=== PATIENT | female | born 1995 | race Caucasian/White ===

== ENCOUNTER 2018-01-31 16:55 | Emergency (ER) | payer BC, MEDICAID ==
[2018-01-31] MEDS ORDERED: KETOROLAC 30 MG/ML VIAL IVP ONE (18:44)
[2018-01-31] MEDS ORDERED: METOCLOPRAMIDE HCL 10 MG/2 ML VIAL IVP ONE (18:44)
[2018-01-31] MEDS ORDERED: DIPHENHYDRAMINE HCL 50 MG/ML VIAL IVP ONE (18:44)
[2018-01-31] MEDS ORDERED: DEXAMETHASONE SOD PHOSPHATE 10MG/ML VIAL IVP ONE (18:44)
[2018-01-31] MEDS ORDERED: 0.9 % SODIUM CHLORIDE 1000ML 1,000 ML IV SCH (18:45)
--- NOTE | 2018-01-31 18:48 | Emergency Department Record ---
History of Present Illness - General Chief Complaint: Headache Migraine Stated Complaint: MIGRAINE Time Seen by Provider: 01/31/18 18:44 Source: Patient Mode of Arrival: Ambulatory Limitations: No limitations - History of Present Illness Initial Comments: 22 yo female presents to ED for evaluation of headache symptoms that began 5 days ago. Patient reports a history of intermittent "migraine-type" headaches, but has not had a headache this severe in several years. Patient denies fevers , chills, or recent illness, denies neck stiffness symptoms. Patient does report intermittent blurred vision and nausea/vomiting which are common with previous headache episodes. Patient does not take anticoagulation medications, and denies health problems other than her headaches. MD Complaint: Headache Onset/Timin -: Days(s) Onset Description: Gradual Location: Diffuse Severity: Moderate Severity scale (1-10): >10 Quality: Aching, Throbbing Consistency: Constant Associated Symptoms: Nausea, Vision loss, Vomiting Treatments Prior to Arrival: Acetaminophen, Migraine medication - Related Data Home Medications Medication Instructions Recorded Confirmed Last Taken 21/Iron Fu/Folic Acid 1 each PO DAILY 01/31/18 01/31/18 1 Day Ago [ Complete Caplet] ~01/30/18 Allergies Allergy/AdvReac Type Severity Reaction Status Date / Time morphine Allergy RASH Verified 01/31/18 17:39 Travel Screening - Travel/Exposure Within Last 30 Days Have you traveled within the last 30 days?: No - Travel/Exposure Within Last Year Have you traveled outside the [place] in the last year?: No - Additonal Travel Details Have you been exposed to anyone with a communicable illness?: No - Travel Symptoms Symptom Screening: None Review of Systems Constitutional: Denies: Chills, Fever, Malaise, Night sweats Eyes: Reports: Photophobia. Denies: Eye discharge, Eye pain ENT: Denies: Congestion, Dental pain Respiratory: Denies: Cough, Dyspnea Cardiovascular: Denies: Chest pain, Dyspnea on exertion Endocrine: Denies: Fatigue, Heat or cold intolerance Gastrointestinal: Reports: Nausea, Vomiting. Denies: Abdominal pain Genitourinary: Denies: Incontinence, Retention Musculoskeletal: Denies: Arthralgia, Back pain, Neck pain Skin: Denies: Bruising, Change in color Neurological: Reports: Headache. Denies: Abnormal gait, Confusion, Tingling, Tremors Psychiatric: Denies: Anxiety Hematological/Lymphatic: Denies: Anemia, Blood Clots Past Medical History - SOCIAL HISTORY Smoking Status: Former smoker Alcohol Use: None Drug Use: None - RESPIRATORY Hx Asthma: Yes - CARDIOVASCULAR Hx Cardio Disorders: No - NEURO Hx Headaches: Yes - GI Hx GI Disorders: No - Hx Genitourinary Disorders: No - ENDOCRINE Hx Diabetes: No Hx Thyroid Disease: No - MUSCULOSKELETAL Hx Musculoskeletal Disorders: No - PSYCH Hx Psych Problems: No - HEMATOLOGY/ONCOLOGY Hx Hematology/Oncology Disorders: No Family Medical History Any Significant Family History?: Yes Physical Exam - General General Appearance: Alert, Oriented x3, Cooperative, Moderate distress Limitations: No limitations - Head Head exam: Atraumatic, Normocephalic, Normal inspection Head exam detail: negative: Abrasion, Contusion, William's sign, General tenderness, Hematoma, Laceration - Eye Eye exam: Normal appearance, PERRL. negative: Conjunctival injection, Periorbital swelling, Periorbital tenderness, Scleral icterus - ENT Ear exam: negative: Auricular hematoma, Auricular trauma Nasal Exam: negative: Active bleeding, Discharge, Dried blood, Sinus tenderness Mouth exam: negative: Drooling, Laceration, Tongue elevation - Neck Neck exam: Normal inspection. negative: Meningismus, Tenderness - Respiratory Respiratory exam: Normal lung sounds bilaterally. negative: Respiratory distress, Rhonchi, Stridor, Wheezes - Cardiovascular Cardiovascular Exam: Regular rate, Normal rhythm, Normal heart sounds - GI/Abdominal GI/Abdominal exam: Soft. negative: Rebound, Rigid, Tenderness - Rectal Rectal exam: Deferred - exam: Deferred - Extremities Extremities exam: Normal inspection. negative: Tenderness - Neurological Neurological exam: Alert, CN II-XII intact, Oriented X3 - Psychiatric Psychiatric exam: Normal affect, Normal mood - Skin Skin exam: Normal color. negative: Abrasion Type of lesion: negative: abrasion Course Vital Signs 01/31/18 17:32 Temperature 98.5 F Pulse Rate 88 Respiratory 20 Rate Blood Pressure 119/94 Pulse Ox 99 - Reevaluation(s) Reevaluation #1: 01/31/18 19:56 Patient was reassessed, reports that her headache symptoms are significantly improved to 3/10 at this time. Reevaluation #2: 01/31/18 20:18 Patient reports that her headache symptoms continue to improve, and appears stable for discharge at this time. Disposition Disposition: Discharge Clinical Impression: Acute headache Qualifiers: Headache type: unspecified Intractability: not intractable Qualified Code(s): R51 - Headache Disposition: Home, Self-Care Condition: (2) Stable Instructions: Acute Headache (ED) Additional Instructions: Return to ED if your symptoms worsen or if you have any concerns. Follow-up with your family doctor in 3-5 days as directed. Forms: Patient Portal Access Time of Disposition: 20:19 Quality - Quality Measures Quality Measures: N/A - Blood Pressure Screening Does Patient Have Any of the Following: No Blood Pressure Classification: Hypertensive Reading Systolic Measurement: 119 Diastolic Measurement: 94 Screening for High Blood Pressure: < First Hypertensive BP, F/U Documented > [ G8950] First Hypertensive Follow-up Interventions: Referral to alternative/primary care provider.
== END 2018-01-31 20:19 | disposition home or self-care (01) ==
LOC: ER 16:55
DX: R51 Headache (principal); R11.2 Nausea with vomiting, unspecified; Z87.891 Personal history of nicotine dependence
CPT/HCPCS: 96361; 96374; 96375; 99284; J1200; J1885; J2765; J7030

== ENCOUNTER 2019-04-19 01:17 | Emergency (ER) | payer BC, MEDICAID ==
[2019-04-19] MEDS ORDERED: KETOROLAC 30 MG/ML VIAL IM ONE (02:08)
[2019-04-19] MEDS ORDERED: ORPHENADRINE CITRATE 60MG/2ML VIAL IM ONE (02:08)
--- NOTE | 2019-04-19 02:08 | Emergency Department Record ---
History of Present Illness - General Chief Complaint: Back Pain/Injury Stated Complaint: BACK PAIN Time Seen by Provider: 04/19/19 01:57 Source: Patient - History of Present Illness Initial Comments: The patient was fine tonight putting down her kids to bed. She walked down the stairs, and with each step she took down the stairs she got increasing back pain in her left lower back and into her left buttock, sacrum and tailbone region. She states that to put weight on her left leg made such great pain that she felt like she couldn't trust it to bear weight. She states the leg was NOT weak, but it hurt too much to weight bear. She didn't have pain when she put weight on her right leg. She continues to be painful so she came here. She had both tubes removed after her last child a few years ago. Her LMP ended yesterday (day 6). MD Complaint: Back pain Onset/Timin -: Hour(s) Similar Symptoms Previously: No Place: Home Radiation: Left leg Severity: Moderate Severity scale (1-10): 5 Quality: Sharp Consistency: Intermittent Improves With: Sitting upright Worsens With: Movement, Walking Context: Unknown Associated Symptoms: Denies other symptoms - Related Data Previous Rx's Medication Instructions Recorded Cyclobenzaprine HCl [Flexeril] 10 mg PO TID #10 tablet 04/19/19 Hydrocodone/Acetaminophen [[place] 1 each PO TID PRN #10 tablet 04/19/19 5-325 Tablet] Allergies Allergy/AdvReac Type Severity Reaction Status Date / Time morphine Allergy RASH Verified 01/31/18 17:39 Travel Screening - Travel/Exposure Within Last 30 Days Have you traveled within the last 30 days?: No - Travel/Exposure Within Last Year Have you traveled outside the [place] in the last year?: No - Additonal Travel Details Have you been exposed to anyone with a communicable illness?: No - Travel Symptoms Symptom Screening: None Review of Systems Reviewed: No additional complaints except as noted below Constitutional: Reports: As per HPI. Denies: Chills, Fever, Malaise, Night sweats, Weakness, Weight change Eyes: Reports: As per HPI. Denies: Eye discharge, Eye pain, Photophobia, Vision change ENT: Reports: As per HPI. Denies: Congestion, Dental pain, Ear pain, Epistaxis, Hearing loss, Throat pain Respiratory: Reports: As per HPI. Denies: Cough, Dyspnea, Hemoptysis, Stridor, Wheezes Cardiovascular: Reports: As per HPI. Denies: Arrhythmia, Chest pain, Dyspnea on exertion, Edema, Murmurs, Orthopnea, Palpitations, Paroxysmal nocturnal dyspnea, Rheumatic Fever, Syncope Endocrine: Reports: As per HPI. Denies: Fatigue, Heat or cold intolerance, Polydipsia, Polyuria Gastrointestinal: Reports: As per HPI. Denies: Abdominal pain, Constipation, Diarrhea, Hematemesis, Hematochezia, Melena, Nausea, Vomiting Genitourinary: Reports: As per HPI. Denies: Abnormal menses, Discharge, Dyspareunia, Dysuria, Frequency, Hematuria, Incontinence, Retention, Urgency Musculoskeletal: Reports: As per HPI. Denies: Arthralgia, Back pain, Gout, Joint swelling, Myalgia, Neck pain Skin: Reports: As per HPI. Denies: Bruising, Change in color, Change in hair/nails, Lesions, Pruritus, Rash Neurological: Reports: As per HPI. Denies: Abnormal gait, Confusion, Headache, Numbness, Paresthesias, Seizure, Tingling, Tremors, Vertigo, Weakness Psychiatric: Reports: As per HPI. Denies: Anxiety, Auditory hallucinations, Depression, Homicidal thoughts, Suicidal thoughts, Visual hallucinations Hematological/Lymphatic: Reports: As per HPI. Denies: Anemia, Blood Clots, Easy bleeding, Easy bruising, Swollen glands Past Medical History - SOCIAL HISTORY Smoking Status: Former smoker Alcohol Use: None Drug Use: None - RESPIRATORY Hx Asthma: Yes - CARDIOVASCULAR Hx Cardio Disorders: No - NEURO Hx Headaches: Yes - GI Hx GI Disorders: No - Hx Genitourinary Disorders: No - ENDOCRINE Hx Diabetes: No Hx Thyroid Disease: No - MUSCULOSKELETAL Hx Musculoskeletal Disorders: No - PSYCH Hx Psych Problems: Yes Hx Anxiety: Yes - HEMATOLOGY/ONCOLOGY Hx Hematology/Oncology Disorders: No Family Medical History Any Significant Family History?: No Physical Exam - General General Appearance: Alert, Oriented x3, Cooperative, Moderate distress - Head Head exam: Normal inspection - Eye Eye exam: Normal appearance, PERRL, EOMI. negative: Conjunctival injection, Nystagmus Pupils: Normal accommodation - ENT ENT exam: Normal exam, Mucous membranes moist, Normal external ear exam, Normal orophraynx, TM's normal bilaterally Ear exam: Normal external inspection. negative: External canal tenderness Nasal Exam: Normal inspection. negative: Discharge, Sinus tenderness Mouth exam: Normal external inspection, Tongue normal Teeth exam: Normal inspection. negative: Dental caries Throat exam: Normal inspection. negative: Tonsillar erythema, Tonsillar exudate - Neck Neck exam: Normal inspection, Full ROM. negative: Lymphadenopathy, Meningismus, Tenderness - Respiratory Respiratory exam: Normal lung sounds bilaterally. negative: Chest wall tenderness, Decreased breath sounds, Respiratory distress - Cardiovascular Cardiovascular Exam: Regular rate, Normal rhythm, Normal heart sounds - GI/Abdominal GI/Abdominal exam: Soft, Normal bowel sounds. negative: Distended, Guarding, Tenderness - Rectal Rectal exam: Deferred - exam: Deferred - Extremities Extremities exam: Normal inspection, Full ROM, Normal capillary refill. negative: Tenderness - Back Back exam: Reports: Normal inspection, Full ROM, Muscle spasm, Vertebral tenderness (lumbar 3-5 tender at spinous processes and tender left flank region with muscle spasm.). Denies: CVA tenderness (R), CVA tenderness (L), Rash noted, Tenderness - Neurological Neurological exam: Alert, CN II-XII intact, Normal gait, Oriented X3, Reflexes normal. negative: Motor sensory deficit - Psychiatric Psychiatric exam: Normal affect, Normal mood - Skin Skin exam: Dry, Intact, Normal color, Warm Course Vital Signs 04/19/19 01:22 Temperature 98.4 F Pulse Rate 95 H Respiratory 20 Rate Blood Pressure 129/98 Pulse Ox 100 - Reevaluation(s) Reevaluation #1: Patient was carefully lowered to flat position with a pillow beneath her knees which improved her comfort level. 04/19/19 02:15 Reevaluation #2: Patient states she is feeling improved when laying flat, but is very painful when she gets up. She states she has never had any bowel or bladder retention/incontinence. 04/19/19 03:55 Medical Decision Making - Management Options MDM Management: Additional Work-up Planned (e.g. ADM/Transfer/OP Study) (Out patient MRI throug PCP with follow up.) - Data Complexity MDM Data: X-Ray Ordered and/or Reviewed (Noncontrast lumbar spine CT: No acute fx; moderate posterior disc bulges at L4-5 and L5-S1 with mild spinal canal stenosis. Incidental finding of 6 nonrib-bearing vertebral bodies. ) Disposition Disposition: Discharge Clinical Impression: Lumbar back pain with radiculopathy affecting left lower extremity Disposition: Home, Self-Care Condition: (1) Good Instructions: Low Back Strain (ED), Lumbar Disc Herniation (ED) Additional Instructions: Flat bed rest. No lifting bending twisting. Flexeril 10 mg three times daily. [place] 5mg every 6-8 hours, prn pain. May cause drowsiness. Take precaustions to prevent constipation. Call PCP [facility] office in a.m. for scheduling of MRI. Find childcare for your children until your condition improves. Prescriptions: Cyclobenzaprine HCl [Flexeril] 10 mg PO TID #10 tablet Hydrocodone/Acetaminophen [[place] 5-325 Tablet] 1 each PO TID PRN #10 tablet PRN Reason: Pain - Mod To Severe (5-10) Quality - Quality Measures Quality Measures: N/A - Blood Pressure Screening Does Patient Have Any of the Following: No Blood Pressure Classification: Hypertensive Reading Systolic Measurement: 129 Diastolic Measurement: 98 Screening for High Blood Pressure: < Normal BP, F/U Not Required > [G8783]
[2019-04-19] MEDS ORDERED: CYCLOBENZAPRINE 10MG TABLET PO ONE (04:06)
[2019-04-19] MEDS ORDERED: HYDROCODONE/APAP 5/325MG TABLET PO ONE (04:06)
--- NOTE | 2019-04-19 14:58 | CT SCAN REPORT ---
EXAM: CT OF THE LUMBAR SPINE WITHOUT CONTRAST HISTORY: SUDDEN ONSET OF LOW BACK PAIN RADIATING TO THE LEFT LEG. NO KNOWN INJURY. TECHNIQUE: Noncontrast CT of the lumbar spine was obtained. Comparison: None. FINDINGS: The vertebral body height is normal. No specific vertebral body lesion evident. Alignment is normal. No subluxation. Disk spacing is normal. Soft tissue window suggests the possibility of disk bulging at the L4-L5 and L5-S1 levels. It cannot be determined from this imaging if any of the disk material is impinging upon nerve roots. The posterior elements show no suspicious bony abnormality. Facet relationships are maintained. There is no prominent spurring. IMPRESSION: 1. NO EVIDENCE OF ANY SUSPICIOUS OSSEOUS ABNORMALITY OF THE LUMBAR SPINE. 2. THERE IS SUGGESTION OF DISK BULGING IN THE LOWER LUMBAR SPINE, BUT IT CANNOT BE DETERMINED IF THE DISK BULGING IS THE CAUSE OF THE PATIENT'S SYMPTOMS. IF PATIENT MANAGEMENT REQUIRES ADDITIONAL EVALUATION OF THE DISK BULGE AND NERVE ROOTS THEN AN MRI IS RECOMMENDED. JOB NUMBER: [id number] [facility]
== END 2019-04-19 04:22 | disposition home or self-care (01) ==
LOC: ER 01:17
DX: M54.16 Radiculopathy, lumbar region (principal); Z87.891 Personal history of nicotine dependence
CPT/HCPCS: 72131; 96372; 99284; J1885; J2360